=== PATIENT | female | born 1950 | race Asian ===

== ENCOUNTER 2017-11-12 16:57 | Inpatient (IN) | payer MEDICARE, MEDICAID ==
[~2017-11-12] VITALS: Ht 152.4 cm; Wt 60.8 kg
[2017-11-12 16:00] VITALS: BP 134/59
[2017-11-12 17:26] VITALS: BP 134/59
[2017-11-12] MEDS ORDERED: INSLIS SUBCUT (17:36)
[2017-11-12] MEDS: INSULIN LISPRO 100 UNITS/ML SUBCUT SCH ×2 (17:50→21:00)
[2017-11-12] MEDS ORDERED: LORAZEPAM 2MG/ML CPJ IM ONE (18:00)
[2017-11-12] MEDS ORDERED: DEXTROSE 50% WATER 50ML SYRINGE IV PRN (18:00)
[2017-11-12] MEDS ORDERED: ONDANSETRON HCL 4MG/2ML VIAL IV PRN (18:00)
[2017-11-12] MEDS ORDERED: LORAZEPAM 0.5MG TABLET PO PRN (18:00)
[2017-11-12] MEDS ORDERED: CLONIDINE 0.1MG TABLET PO PRN (18:00)
[2017-11-12] MEDS ORDERED: ONDANSETRON 4MG ODT PO PRN (18:15)
[2017-11-12] MEDS ORDERED: LORAZEPAM 2MG/ML CPJ IV PRN (19:15)
[2017-11-12 19:20] LABS: BASOPHILS % 0.6 % (0.0-2.0); EOSINOPHILS % 5.6 % (0.0-5.0); HEMATOCRIT. 43.8 % (36.0-48.0); HEMOGLOBIN. 14.5 g/dL (12.0-16.0); LYMPHOCYTES % 19.9 % (20.0-50.0); MEAN CORPUSCULAR HEMOGLOBIN 26.8 pg (28.0-32.0); MEAN PLATELET VOLUME 7.4 fl (7.4-10.4); MONOCYTES % 5.8 % (2.0-8.0); NEUTROPHILS % 68.1 % (40.0-76.0); PLATELET 299 x1000/uL (130-400); RED BLOOD CELL COUNT 5.41 mill/uL (4.2-5.4); RED CELL DISTRIBUTION WIDTH 15.2 % (11.6-14.6)
[2017-11-12 19:25] LABS: CHLORIDE 105 mEq/L (98-107)
[2017-11-12 19:28] LABS: AMMONIA 25 uMol/L (<32)
[2017-11-12 20:00] VITALS: BP 105/81
[2017-11-12] MEDS: BLOOD SUGAR DIAGNOSTIC STRIP TEST SCH (21:00)
[2017-11-13] VITALS: BP_SYST 115; BP_DIAS 34; BP_DIAS 49
[2017-11-13] MEDS: BLOOD SUGAR DIAGNOSTIC STRIP TEST SCH ×4 (06:39→21:00)
[2017-11-13] MEDS: INSULIN LISPRO 100 UNITS/ML SUBCUT SCH ×4 (06:39→21:00)
[2017-11-13] MEDS: DEXT 5%/0.45% NACL 1000ML 1,000 ML IV SCH ×2 (07:20→20:40)
[2017-11-13] MEDS: ASPIRIN 81MG TABLET PO SCH (08:24)
[2017-11-13] MEDS: ENOXAPARIN 40MG/0.4ML SYR SUBCUT SCH (08:27)
[2017-11-13 09:38] LABS: BASOPHILS % 0.6 % (0.0-2.0); EOSINOPHILS % 6.2 % (0.0-5.0); HEMATOCRIT. 41.2 % (36.0-48.0); HEMOGLOBIN. 13.4 g/dL (12.0-16.0); LYMPHOCYTES % 21.2 % (20.0-50.0); MEAN CORPUSCULAR HEMOGLOBIN 26.4 pg (28.0-32.0); MEAN CORPUSCULAR VOLUME 81.3 fL (81.0-99.0); MEAN PLATELET VOLUME 7.4 fl (7.4-10.4); MONOCYTES % 5.1 % (2.0-8.0); NEUTROPHILS % 66.9 % (40.0-76.0); PLATELET 277 x1000/uL (130-400); RED BLOOD CELL COUNT 5.07 mill/uL (4.2-5.4)
[2017-11-13 09:44] LABS: CHLORIDE 103 mEq/L (98-107)
[2017-11-13 16:00] VITALS: BP 116/68
[2017-11-13 20:00] VITALS: BP 112/69
[2017-11-13] MEDS: LORAZEPAM 1MG TABLET PO PRN (22:10)
[2017-11-14] VITALS: BP 120/61
[2017-11-14 04:00] VITALS: BP 119/59
[2017-11-14] MEDS: BLOOD SUGAR DIAGNOSTIC STRIP TEST SCH ×4 (06:28→20:26)
[2017-11-14] MEDS: INSULIN LISPRO 100 UNITS/ML SUBCUT SCH ×4 (07:50→20:26)
[2017-11-14 08:00] VITALS: BP 118/63
[2017-11-14] MEDS: ASPIRIN 81MG TABLET PO SCH (08:18)
[2017-11-14] MEDS: ENOXAPARIN 40MG/0.4ML SYR SUBCUT SCH (08:20)
[2017-11-14] MEDS: DEXT 5%/0.45% NACL 1000ML 1,000 ML IV SCH ×2 (10:00→23:20)
[2017-11-14 12:00] VITALS: BP 108/62
[2017-11-14 16:00] VITALS: BP 123/68
[2017-11-14 20:00] VITALS: BP 144/61
[2017-11-15] MEDS: BLOOD SUGAR DIAGNOSTIC STRIP TEST SCH ×2 (06:36→12:35)
[2017-11-15] MEDS: INSULIN LISPRO 100 UNITS/ML SUBCUT SCH (07:28)
[2017-11-15] MEDS: LORAZEPAM 1MG TABLET PO PRN (07:34)
[2017-11-15 08:00] VITALS: BP 128/71
[2017-11-15] MEDS: ENOXAPARIN 40MG/0.4ML SYR SUBCUT SCH (09:00)
[2017-11-15] MEDS: ASPIRIN 81MG TABLET PO SCH (09:00)
[2017-11-15] MEDS ORDERED: HALOPERIDOL LACTATE 5MG/ML VIAL IM NR (12:30)
[2017-11-15 14:48] VITALS: BP 128/71
== END 2017-11-15 14:46 | DRG 689 ==
LOC: 6EST 16:57
PROVIDERS: ADMIT Hospitalist; ATTEND Hospitalist
DX: N39.0 Urinary tract infection, site not specified (principal); G93.40 Encephalopathy, unspecified; J44.9 Chronic obstructive pulmonary disease, unspecified; E11.9 Type 2 diabetes mellitus without complications; I10 Essential (primary) hypertension; F20.9 Schizophrenia, unspecified; K21.9 Gastro-esophageal reflux disease without esophagitis; M19.90 Unspecified osteoarthritis, unspecified site; K80.20 Calculus of gallbladder without cholecystitis without obstruction; Z79.4 Long term (current) use of insulin
CPT/HCPCS: 36415; 80048; 82140; 82962; 85025; 87086; J1630; J2060; J3490